=== PATIENT | male | born 1990 | race Caucasian/White ===

== ENCOUNTER 2018-04-20 20:25 | Emergency (ER) | payer MEDICAID, OTHER ==
[2018-04-20] MEDS ORDERED: normal saline 1000ML IV soln IVB ONE (20:50)
[2018-04-20] MEDS ORDERED: morphine 4 MG/ML inj SYRINge IV ONE (20:50)
[2018-04-20 21:02] LABS: BASOPHILS % (AUTO) 0.4 % (0-1); EOSINOPHILS # (AUTO) 0.2 X10'3 (0-0.9); EOSINOPHILS % (AUTO) 2.1 % (0-6); HEMATOCRIT 47.5 % (42.0-52.0); HEMOGLOBIN 16.3 g/dl (14.0-17.9); LYMPHOCYTES # (AUTO) 2.4 X10'3 (1.1-4.8); LYMPHOCYTES % (AUTO) 24.8 % (21-51); MEAN CORPUSCULAR HGB CONC 34.2 % (33.0-36.5); MEAN CORPUSCULAR VOLUME 90.6 FL (78-98); MONOCYTES # (AUTO) 0.6 X10'3 (0-0.9); MONOCYTES % (AUTO) 6.4 % (2-12); NEUTROPHILS # (AUTO) 6.3 X10'3 (1.8-7.7); NEUTROPHILS % (AUTO) 66.3 % (42-75); PLATELET COUNT 223 X10'3 (140-440); RED BLOOD COUNT 5.24 X10'6 (4.70-6.10); RED CELL DISTRIBUTION WIDTH 13.7 % (11.5-14.5); WHITE BLOOD COUNT 9.5 X10'3 (4.5-11.0)
[2018-04-20 21:12] LABS: INR 1.1 INR; PROTHROMBIN TIME 11.2 SECONDS (9.0-12.0)
[2018-04-20 21:17] LABS: ALANINE AMINOTRANSFERASE 30 U/L (12-78); ALBUMIN/GLOBULIN RATIO 1.1 (1.1-1.5); ALKALINE PHOSPHATASE 76 IU/L (46-116); ANION GAP 8 (8-16); ASPARTATE AMINO TRANSFERASE 17 U/L (10-37); BILIRUBIN,TOTAL 0.4 MG/DL (0.1-1.0); BLOOD UREA NITROGEN 11 MG/DL (7-18); BUN/CREATININE RATIO 11.2 (5.4-32.0); CHLORIDE 102 MMOL/L (99-107); CREATININE 0.98 MG/DL (0.60-1.10); GLUCOSE 81 MG/DL (70-104); POTASSIUM 3.8 MMOL/L (3.5-5.1); SODIUM 137 MMOL/L (135-145); TOTAL CARBON DIOXIDE 26.9 MMOL/L (24-32); TOTAL PROTEIN 7.7 G/DL (6.4-8.2); eGFR > 90 ML/MIN
[2018-04-20 21:27] LABS: CALCIUM 8.7 MG/DL (8.5-10.1)
[2018-04-20 21:54] LABS: CLARITY,URINE CLEAR (Clear); COLOR,URINE YELLOW (Yellow); GLUCOSE, URINE NEGATIVE (Neg); KETONES,URINE NEGATIVE (Neg); LEUKOCYTE ESTERASE ,URINE NEGATIVE (Neg); NITRITES, URINE NEGATIVE (Neg); OCCULT BLOOD,URINE SMALL (Neg); PH,URINE 5.5 (4.8-8.0); PROTEIN,URINE NEGATIVE (Neg); UROBILINOGEN,URINE 0.2 E.U/dL (0.2-1.0)
[2018-04-20 21:57] LABS: UA COLLECTION TYPE CLN CATCH MIDSTREAM
[2018-04-20 22:01] LABS: BACTERIA,URINE NONE SEEN /HPF (Neg); MUCUS STRANDS NONE SEEN /LPF (Neg); RBC,URINE 0-2 /HPF (0-2); SQUAMOUS EPITHELIAL CELL,UR NONE SEEN /LPF (FEW); WBC,URINE NONE SEEN /HPF (0-4)
[2018-04-20] MEDS ORDERED: HYDR-3965 PO (22:42)
[2018-04-20 22:59] VITALS: BP 135/78
== END 2018-04-20 23:01 | disposition home or self-care (01) ==
LOC: ER 20:26
DX: N50.89 Other specified disorders of the male genital organs (principal); N50.811 Right testicular pain; F17.200 Nicotine dependence, unspecified, uncomplicated; Z88.2 Allergy status to sulfonamides
CPT/HCPCS: 36415; 76870; 80053; 81001; 85025; 85610; 96374; 99285; A6222; A6446; J2270; J7030

== ENCOUNTER 2019-05-07 10:24 | Emergency (ER) | payer MEDICAID, OTHER ==
[~2019-05-07] VITALS: Ht 175.3 cm; Wt 72.0 kg
[2019-05-07] MEDS ORDERED: ipratropium/albuterol 3ml nebule NEB ONE (11:20)
[2019-05-07] MEDS ORDERED: ALBU18HF2 IH (11:51)
[2019-05-07 11:56] VITALS: BP 123/74
== END 2019-05-07 12:03 | disposition home or self-care (01) ==
LOC: ER 10:24
DX: J80 Acute respiratory distress syndrome (principal); F17.200 Nicotine dependence, unspecified, uncomplicated; Z88.2 Allergy status to sulfonamides
CPT/HCPCS: 93005; 94640; 94760; 99283